=== PATIENT | female | born 1950 | race Caucasian/White ===

== ENCOUNTER → 2021-12-11 | Emergency (ER) | payer MEDICARE | END | disposition left against medical advice (07) | LOC: ER 15:14 | DX: S69.90XA Unspecified injury of unspecified wrist, hand and finger(s), initial encounter (principal); R42 Dizziness and giddiness; Z53.21 Procedure and treatment not carried out due to patient leaving prior to being seen by health care provider; W23.0XXA Caught, crushed, jammed, or pinched between moving objects, initial encounter; Y93.89 Activity, other specified; Y92.89 Other specified places as the place of occurrence of the external cause; Y99.8 Other external cause status ==